=== PATIENT | male | born 1945 | race Caucasian/White ===

== ENCOUNTER 2016-12-03 21:06 | Emergency (ER) | payer OTHER ==
[~2016-12-03] VITALS: Ht 175.3 cm; Wt 79.0 kg
[~2016-12-03 21:06] MED LIST: ASPIR 8181 M1 PO; B COMPLETE1 EACH PO; COMPAZINE10 MG PO; COREG25 M1 PO; DOX PO; GLUCOPHAGE1000 MG PO; HYCET 7.5 MG-3473 ML PO; LASIX40 MG PO; LEVEMIR FL100 UNIT/1 SC; LIDOCAINE PO; MAALOX PO; METFORMIN HCL1000 MG PO; MICROZIDE12.5 M1 PO; NOVOLOG PE100 UNITS/ SC; ROBITUSSIN DM118 ML PO; VASOTEC20 MG PO; VITAMIN B12-FO1 EACH PO; VITAMIN B122500 MCG PO; VITAMIN D-32000 UNI2 PO; ZOCOR80 MG PO; ZYRTEC-D1 TABLE1 PO; ZYRTEC10 M2 PO
[2016-12-03 23:28] VITALS: BP 135/66
== END 2016-12-03 23:34 | disposition home or self-care (01) ==
LOC: EME 21:06
DX: T83.091A Other mechanical complication of indwelling urethral catheter, initial encounter (principal); Z98.890 Other specified postprocedural states; R10.30 Lower abdominal pain, unspecified; I10 Essential (primary) hypertension; I50.9 Heart failure, unspecified; E11.9 Type 2 diabetes mellitus without complications; Z79.4 Long term (current) use of insulin; Z87.442 Personal history of urinary calculi; Z95.0 Presence of cardiac pacemaker
CPT/HCPCS: 99281; 99283

== ENCOUNTER → 2017-08-08 | Outpatient (CLI) | payer MEDICARE, OTHER | END | disposition home or self-care (01) | LOC: CDC 10:28 | DX: Z01.810 Encounter for preprocedural cardiovascular examination (principal); I49.3 Ventricular premature depolarization; D49.4 Neoplasm of unspecified behavior of bladder | CPT/HCPCS: 93000 ==